=== PATIENT | female | born 1945 | race Caucasian/White ===

== ENCOUNTER → 2016-03-31 | Outpatient (CLI) | payer MEDICARE ==
[~2016-03-31] MED LIST: ACCUNEB SOL3 ML/NEB INH; ACIPHEX 20 MG T20 MG PO; AMITRIPTYLINE100 MG PO; ANORO ELLIPTA1 POW IH; ARCAPTA NEOHAL75 MCG IH; ASPIRIN 325MG325 MG PO; BISOPROLOL/HCTZ1 TA2 PO; CRESTOR10 MG PO; DARVOCET-N 1001 EACH PO; FLEXERIL10 MG PO; LISINOPRIL 5MG T5 MG PO; LORTAB 10/3251 TAB PO; LYRICA150 MG PO; NEBULIZER XX; OXYGEN IH; OXYGEN2 IH; PREDNISONE 20MG20 MG PO; PROTONIX 40MG T40 MG PO; SAVELLA100 MG PO; SIMVASTATIN20 MG PO; SPIRIVA HA1 PUFF/INH IH; TAMIFLU 75MG CA75 MG PO; VENTOLIN H0.09 MG/AC IH; ZITHROMAX Z-PA250 M2 PO
[2016-03-31 15:21] LABS: HEMOGLOBIN 12.6 g/dL (12.2-16.2); LYMPH # 2.1 K/mm3 (0.7-4.5); LYMPH % 22.5 % (10-50.0)
[2016-03-31 17:39] LABS: BUN 11 mg/dL (7-18)
[2016-03-31 17:57] LABS: GFR (ESTIMATED) 99 ML/MIN (59-)
== END ==
LOC: LAB 15:02
PROVIDERS: Nurse Practitioner Family
DX: R73.9 Hyperglycemia, unspecified (principal); E87.6 Hypokalemia; D64.9 Anemia, unspecified

== ENCOUNTER 2016-05-11 14:08 | Emergency (ER) | payer MEDICARE ==
[~2016-05-11] VITALS: Ht 152.4 cm; Wt 85.7 kg
[~2016-05-11 14:08] MED LIST changes: -TAMIFLU 75MG CA75 MG PO
[2016-05-11 15:20] LABS: UTC STREP SCREEN NOT DETECTED (NOTDETECTED)
[2016-05-11] MEDS ORDERED: TAMIFLU 75MG CA75 MG PO (15:51)
--- NOTE | 2016-05-11 15:51 | Urgent Treatment Center Report ---
History of Present Issue Date/Time Seen by Provider 05/11/16 1539 Visit Reason Pt arrived:Wheelchair Presenting Problem:COUGH, ACHE, FEVER, SORE THROAT Location if Accident: Onset of symptoms date/time:05/09/16/ or onset unknown for:MEDICAL HX UNKNOWN Have you (or family members/close friends) recently traveled outside the [place]? N If Yes, where/when: Have you had exposure to infectious disease within the past month? TB? Other? Specify: Patient states that she has not felt well for 2-3 days fever, achy, cough and sore throat states that she feels like she has the flu ALLERGIES Coded Allergies: Penicillins (I-RASH 03/11/16) Sulfa (Sulfonamide Antibiotics) (I-RASH 03/11/16) nylon (I-RASH 03/12/16) Home Medications Active Scripts ALBUTEROL SULFATE (Accuneb) 1.25 MG INH Q6HP PRN WHEEZING #120 NEB Ref 1 Prov: 03/12/16 Device (Nebulizer, Compressor) 1 UNIT XX UD #1 DEV Prov: 03/12/16 Device (Oxygen (Concentrator)) 1 UNIT IH CONSTANT #2 DEV Ref 5 Prov: 03/12/16 Device (Oxygen, Portable) 1 UNIT IH CONSTANT #2 DEV Ref 5 Prov: 03/12/16 Reported Medications BISOPROLOL FUMARATE/HCTZ (Bisoprolol-Hctz 5-6.25 MG Tab) 2 TABS PO DAILY ASPIRIN (Aspirin 325MG) 81 MG PO DAILY Pregabalin (Lyrica 150MG) 150 MG PO QHS Indacaterol Maleate (Arcapta Neohaler) 1 CAP IH DAILY #30 Tiotropium [place] (Spiriva) 1 PUFF IH DAILY #30 Pantoprazole Sodium (Protonix 40MG TAB) 40 MG PO BID MILNACIPRAN HCL (Savella) 100 MG PO BID ALBUTEROL (Ventolin Hfa) 1 PUFF IH PRN PRN BREATHING Simvastatin 20 MG PO DAILY LISINOPRIL (Lisinopril) 5 MG PO DAILY History Medical History General CAD? Yes Angina: Yes [place]: Yes Hypertension? Yes Hyperlipidemia? No CHF? No DVT? No PE? No COPD? Yes Asthma? No Anemia? Yes GERD? Yes Gastric ulcers? No GI Bleed? No Hernia? Yes Thyroid Problems? No Hypothyroidism? No CVA? Yes Seizures? No Diabetes? No Insulin Dependent: No Insulin Pump: No Home FSBS? No Renal Insuffiency? No UTI? Yes Stones? Yes BPH? No GB Disease: No Nephritic Syndrome? No Asplenia? No Hepatitis? No Sickle Cell Disease? No Arthritis? Yes Migraines? No Cataracts? Yes Glaucoma? No MRSA? No HIV? No TB? No Anxiety? Yes Depression? No Cancer? No More? No Additional hx: CARDIAC STENT 07/12 Immunization HX DT/Tetanus > 10 Years Ago Flu Flu Season Pneumonia Received In Past Surgical Hx Previous Surgery?Y Exploratory Laparoscopy BILATERAL TUBAL LIGATION CALVIN R KNEE/L ELBOW ORTHO R BREAST LUMPECTOMY CHOLECYSTECTOMY CARDIAC STENT [employer] Hx LMP menopause Family History Family HX Diabetes No CAD Yes Hypertension Yes Hyperlipidemia No Cancer Yes TB No Social History Smoking Hx Smoker: Former Smoker Tobacco: No Type Cigarettes Packs/day N/A Are you/the child exposed to second-hand smoke: No Alcohol Alcohol: No Review of Systems All Other Systems Reviewed and Negative Physical Exam Vital Signs Vital Signs Date Time Temp Pulse Resp B/P Pulse O2 O2 Flow FiO2 Ox Delivery Rate 05/11 1452 99.1 98 20 111/59 95 2 05/11 1441 99.1 98 20 111/59 95 General Appearance Ill, pale in color, feverish Ear, Nose, Throat nasal congestion, tonsillar exudate, tonsillar swelling Respiratory Status Yes: trachea midline, chest symmetrical, non tender chest. No: respiratory distress. Cardiovascular normal exam Neurologic alert, normal exam Medical Decision Making LABS/Meds/Orders Pt receiving controlled substance in ED? No Results/Orders Laboratory Tests 05/11/16 1448: Influenza Type A Ag DETECTED H, Influenza Type B Ag NOT DETECTED, Group A Strep Screen NOT DETECTED Orders Procedure Date/time Status UTC STREP SCREEN 05/11 1448 Complete UTC FLU A,B 05/11 1448 Complete Departure Departure Time of Disposition 1549 Disposition DC Home or Self Care(routine) Clinical Impression Primary Impression: Influenza Condition STABLE Referrals Real Barrios MD (Family) Patient Instructions DI for H1N1 Influenza -- Adult Additional Instructions Over the counter Tylenol as needed for fever Continue to use nebulizer and inhalers as previously prescribed Take Medication as prescribed Follow up family doctor Warm salt water gargles for throat irritation Drink plenty of fluids Discharge Counseling Counseled pt/family regarding diagnosis, test results, medications/RX, home care Prescriptions Current Visit Scripts Oseltamivir Phosphate (Tamiflu 75MG Capsule) 75 MG PO DAILY #7 CAP at [id number]
[2016-05-11 15:54] VITALS: BP 111/59
== END 2016-05-11 15:55 | disposition home or self-care (01) ==
LOC: UTC 14:08
PROVIDERS: Nurse Practitioner Family
DX: J11.1 Influenza due to unidentified influenza virus with other respiratory manifestations (principal)

== ENCOUNTER → 2017-02-11 | Outpatient (CLI) | payer MEDICARE ==
[~2017-02-11] MED LIST changes: +CLARITIN 10MG T10 MG PO; +CYCLOBENZ5 MG PO; +DIAZEPAM2 M1 PO; +NORVASC 5MG. TAB5 MG PO; +TAMIFLU 75MG CA75 MG PO
--- NOTE | 2017-02-11 09:52 | RADIOLOGY REPORT PS360 ---
CT CHEST W/O CONTRAST HISTORY: FORMER SMOKER, PULMONARY EMPHYSEMA ORDERING PHYSICIAN: SWEETIE CHUA MD PATIENT AGE: 71 years TECHNIQUE: Axial images obtained without contrast. COMPARISON: 11/05/2015 FINDINGS: No mediastinal or hilar mass or adenopathy. There is a small hiatal hernia. Extensive coronary artery calcifications are present. There is normal heart size without pericardial thickening. There are centrilobular emphysematous changes. Scattered small parenchymal opacities are once again noted most of which are unchanged and likely due to postinflammatory fibrosis. There is a 12 mm nodular opacity in the right middle lobe anteriorly. This nodule is has a somewhat suspicious characteristics being rounded with some minimal irregularity. A developing neoplasm is considered. This could be due to an area of rounded atelectasis or postinflammatory nodule as well. Consider PET/CT for further evaluation to determine the activity of this nodule. There are some chronic atelectatic changes in the lingula. Small area of fibrosis is present in the left upper lobe centrally which is slightly more apparent. Upper abdominal images are unremarkable. No acute bony anomalies. IMPRESSION: 1. 12 mm somewhat suspicious nodule in the right middle lobe anteriorly. Consider PET/CT for further evaluation to determine the activity of this lesion. Neoplasm is considered. Postinflammatory nodule or rounded atelectasis also a consideration. 2. Centrilobular emphysematous changes with postinflammatory fibrotic areas 3. Coronary artery disease
== END ==
LOC: RAD 08:15
DX: Z87.891 Personal history of nicotine dependence (principal); Z12.2 Encounter for screening for malignant neoplasm of respiratory organs; J43.9 Emphysema, unspecified